=== PATIENT | female | born 1955 | race African-American/Black ===

== ENCOUNTER 2019-01-24 08:38 | Emergency (ER) | payer MEDICAID ==
[~2019-01-24] VITALS: Ht 142.2 cm; Wt 54.0 kg
[2019-01-24] MEDS ORDERED: CETIRIZINE 10MG TABLET PO SCH (10:15)
[2019-01-24] MEDS ORDERED: ACETAMINOPHEN 325MG TABLET PO ONE (10:30)
[2019-01-24 10:40] VITALS: BP 154/75
== END 2019-01-24 10:43 | disposition home or self-care (01) ==
LOC: ER 09:10
DX: S80.862A Insect bite (nonvenomous), left lower leg, initial encounter (principal); S80.861A Insect bite (nonvenomous), right lower leg, initial encounter; L03.116 Cellulitis of left lower limb; L03.115 Cellulitis of right lower limb; Z98.890 Other specified postprocedural states; Z88.8 Allergy status to other drugs, medicaments and biological substances; W57.XXXA Bitten or stung by nonvenomous insect and other nonvenomous arthropods, initial encounter; Y93.89 Activity, other specified; Y92.89 Other specified places as the place of occurrence of the external cause; Y99.8 Other external cause status
CPT/HCPCS: 99283

== ENCOUNTER 2019-03-10 00:16 | Emergency (ER) | payer MEDICAID ==
[~2019-03-10] VITALS: Ht 139.7 cm; Wt 53.0 kg
[2019-03-10] MEDS ORDERED: KETOROLAC 30MG/ML VIAL IV STA (01:09)
[2019-03-10] MEDS ORDERED: SODIUM CHLORIDE 0.9% 1,000 ML IV ONE (01:09)
[2019-03-10 01:41] LABS: CHLORIDE 105 mEq/L (98-107)
[2019-03-10 01:45] LABS: HEMOGLOBIN. 12.8 g/dL (12.0-16.0); MEAN CORPUSCULAR HEMOGLOBIN 28.2 pg (28.0-32.0); MEAN CORPUSCULAR VOLUME 85.8 fL (81.0-99.0); MEAN PLATELET VOLUME 9.3 fl (7.4-10.4); PLATELET 189 x1000/uL (130-400); RED BLOOD CELL COUNT 4.55 mill/uL (4.2-5.4); RED CELL DISTRIBUTION WIDTH 13.6 % (11.6-14.6)
[2019-03-10 02:17] LABS: PLATELET ESTIMATE NORMAL
[2019-03-10] MEDS ORDERED: ONDANSETRON HCL 4MG/2ML INJ IV ONE (03:15)
[2019-03-10] MEDS ORDERED: ACETAMINOPHEN WITH CODEINE 300/30MG TABLET PO ONE (04:15)
[2019-03-10 04:55] VITALS: BP 147/81
== END 2019-03-10 05:26 | disposition home or self-care (01) ==
LOC: ER 00:16
DX: R52 Pain, unspecified (principal); Z88.2 Allergy status to sulfonamides
CPT/HCPCS: 36415; 80053; 83605; 85025; 87040; 96374; 96375; 99283; J1885; J2405; J7030; Z7610